=== PATIENT | male | born 1975 | race Caucasian/White ===

== ENCOUNTER → 2019-11-05 | Outpatient (CLI) | payer BC ==
[~2019-11-05] MED LIST: BREO1INH INH; CLAR10CA3 PO; GLUC1CAP10 PO; OMEP40CA97 PO; PERC5TAB12 PO; SING10TA32 PO
== END ==
LOC: M LABSMTC 10:46 → EDUNIT# 10:55
PROVIDERS: ATTEND Urology
DX: Z01.812 Encounter for preprocedural laboratory examination (principal); Z20.828 Contact with and (suspected) exposure to other viral communicable diseases
CPT/HCPCS: C9803; U0003

== ENCOUNTER 2019-11-10 07:44 | Day surgery (SDC) | payer BC ==
[~2019-11-10] VITALS: Ht 190.5 cm; Wt 136.5 kg
[~2019-11-10 07:44] MED LIST changes: +BACITRACIN OINTMENT 30GM TUBE As Ordered ONE; +BUPIVACAINE HCL 0.25% 30ML VIAL As Ordered ONE; +CIPROFLOXACIN 400 MG in IV 1 EA IV ONE; +LIDOCAINE 1% SDV 30ML VIAL As Ordered ONE; +LIDOCAINE 2% 100MG/5ML SDV (FOR ANES.) As Ordered ONE; +LR 1,000 ML IV ONE; +MIDAZOLAM INJ 2MG/2ML VIAL (J2250 PER 1MG) As Ordered ONE; +ONDANSETRON 4MG/2ML VIAL As Ordered ONE; -PERC5TAB12 PO; +dexameTHASONE 4 MG/ML 1ML VIAL (J1100 PER 1MG) As Ordered ONE; +fentaNYL 100 MCG/2 ML INJECTION (J3010) As Ordered ONE; +propofoL 200 MG/20 ML VIAL As Ordered ONE
[2019-11-10] MEDS ORDERED: CIPROFLOXACIN/D5W 400 MG/200 ML BAG (J0744) As Ordered ONE (08:11)
[2019-11-10] MEDS ORDERED: ACETAMINOPHEN 1000MG 100ML IV BTL (OFIRMEV) (J0131 PER 10MG) As Ordered ONE (08:47)
[2019-11-10] MEDS ORDERED: PERC5TAB12 PO (10:22)
[2019-11-10] MEDS ORDERED: ONDANSETRON 4MG/2ML VIAL IV PRN (10:30)
[2019-11-10] MEDS ORDERED: fentaNYL 100 MCG/2 ML INJECTION (J3010) IV PRN (10:30)
[2019-11-10] MEDS ORDERED: HYDROMORPHONE HCL 0.5 MG/ 0.5 ML SYRINGE (J1170 PER 1) IV PRN (10:30)
[2019-11-10] MEDS ORDERED: PERCOCET 5MG/325MG TAB PO PRN (10:30)
[2019-11-10] MEDS ORDERED: oxyCODONE 5MG TAB PO PRN (10:30)
[2019-11-10] MEDS ORDERED: LR 1,000 ML IV SCH (10:30)
[2019-11-10 11:20] VITALS: BP 131/83
--- NOTE | 2019-11-21 09:40 | RO ---
DATE OF PROCEDURE: November 10, 2019 PRE-PROCEDURE DIAGNOSIS: Left hydrocele. POST-PROCEDURE DIAGNOSIS: Left hydrocele. PROCEDURE: Left hydrocelectomy. SURGEON: Nathaniel Du MD [employer] RAMPMAN: Virgilio Bermudez D.O. ANESTHESIA: General. OPERATIVE INDICATIONS: This is 44-year-old male with a large left hydrocele. He was brought to the operating room today for treatment. DESCRIPTION OF PROCEDURE: The patient was brought to the operating room and general anesthesia was induced. Prophylactic antibiotics were infused. He was then placed in the supine position and prepped and draped in the usual sterile fashion. At this point, an approximately 7-cm transverse incision was made over the left hemiscrotum. We then dissected down through the scrotal wall layers. The left testicle, with the hydrocele, was then delivered outside of the left hemiscrotum. At this point, once we had dissected down to the layer of the tunica vaginalis, it was punctured and approximately 400 to 500 mL serous fluid drained out of the hydrocele sac. The hydrocele sac was then excised using Bovie electrocautery. The edges of the hydrocele sac were then oversewn using a running 2-0 Vicryl suture. Of note there were no injuries to the testicle. We then checked for hemostasis and any areas of bleeding were controlled with electrocautery. The testicle was then delivered back inside the left hemiscrotum in its normal anatomic position. Once that was done, the dartos muscle was closed with running 3-0 Vicryl sutures. The skin was closed with interrupted 2-0 chromic sutures. Dressings were then applied. This marked the conclusion of the procedure. The patient was then awakened from anesthesia and transferred to the recovery room in stable condition. ESTIMATED BLOOD LOSS: 10 mL. COMPLICATIONS: None. SPECIMENS: Left hydrocele sac. PLAN: The patient will follow up in the [facility] in approximately 2-3 weeks for a postoperative visit. SARAH
== END 2019-11-10 11:51 | disposition home or self-care (01) ==
LOC: M SDC 07:44
PROVIDERS: ATTEND Urology
DX: N43.3 Hydrocele, unspecified (principal); E78.5 Hyperlipidemia, unspecified; K21.9 Gastro-esophageal reflux disease without esophagitis; J45.909 Unspecified asthma, uncomplicated; G47.30 Sleep apnea, unspecified; Z79.899 Other long term (current) drug therapy; Z88.0 Allergy status to penicillin
CPT/HCPCS: 55040; 88302; J0131; J0744; J1100; J2250; J2405; J3010